=== PATIENT | male | born 1965 | race Caucasian/White ===

== ENCOUNTER → 2021-02-02 | Outpatient (CLI) | payer BC ==
[~2021-02-02] MED LIST: ASPIRIN CHEWABL81 MG PO
== END ==
LOC: EXRD 08:23
DX: R10.13 Epigastric pain (principal)
CPT/HCPCS: 76705

== ENCOUNTER 2021-02-08 17:30 | Emergency (ER) | payer BC ==
[2021-02-08 18:34] LABS: HEMOGLOBIN 14.3 gm/dl (14.0-17.5); RED BLOOD COUNT 4.36 M/UL (4.20-5.50); WHITE BLOOD COUNT 5.1 K/UL (4.5-11.0)
[2021-02-08 18:53] LABS: BUN/CREATININE RATIO 21 (0-10)
[2021-02-08] MEDS ORDERED: ASPIRIN CHEWABL81 MG PO (21:56)
== END 2021-02-08 22:10 | disposition home or self-care (01) ==
LOC: ER1 17:30
DX: R07.9 Chest pain, unspecified (principal)
CPT/HCPCS: 71045; 80053; 82550; 82553; 83690; 83874; 84484; 85025; 93005; 99285

== ENCOUNTER → 2021-04-07 | Outpatient (CLI) | payer BC ==
[~2021-04-07] MED LIST changes: +COLACE100 MG PO; +DEXILANT30 MG PO; +HYDROCODON-ACE1 EAC2 PO
== END ==
LOC: NM 03-13 10:00
DX: R10.13 Epigastric pain (principal); R93.2 Abnormal findings on diagnostic imaging of liver and biliary tract
CPT/HCPCS: 78227; A9537; J2805

== ENCOUNTER → 2021-04-19 | Day surgery (SDC) | payer BC | END | disposition home or self-care (01) | LOC: OR 08:48 | DX: Z12.11 Encounter for screening for malignant neoplasm of colon (principal); K82.8 Other specified diseases of gallbladder; R10.13 Epigastric pain; E78.5 Hyperlipidemia, unspecified; K21.9 Gastro-esophageal reflux disease without esophagitis; G47.33 Obstructive sleep apnea (adult) (pediatric); K27.7 Chronic peptic ulcer, site unspecified, without hemorrhage or perforation; E55.9 Vitamin D deficiency, unspecified; Z20.822 Contact with and (suspected) exposure to COVID-19 | CPT/HCPCS: J2704; J7120 ==

== ENCOUNTER → 2021-04-24 | Day surgery (SDC) | payer BC ==
[~2021-04-24] VITALS: Ht 177.8 cm; Wt 86.2 kg
== END | disposition home or self-care (01) ==
LOC: OR 06:56
DX: K81.1 Chronic cholecystitis (principal); K82.8 Other specified diseases of gallbladder; E78.5 Hyperlipidemia, unspecified; K21.9 Gastro-esophageal reflux disease without esophagitis; N52.9 Male erectile dysfunction, unspecified; G47.33 Obstructive sleep apnea (adult) (pediatric); Z20.822 Contact with and (suspected) exposure to COVID-19
CPT/HCPCS: J0690; J1100; J1885; J2250; J2405; J2704; J2710; J3010; J7030; J7120